=== PATIENT | male | born 1955 | race Caucasian/White ===

== ENCOUNTER 2019-02-27 20:48 | Inpatient (IN) | payer OTHER, MEDICAID ==
[~2019-02-27] VITALS: Ht 162.6 cm; Wt 70.3 kg
[2019-02-28] VITALS (28 sets, daily range): BP systolic 94–125; BP diastolic 51–72
[2019-02-28 00:03] LABS: CLARITY URINE CLEAR (CLEAR); COLOR URINE YELLOW (YELLOW); KETONES URINE NEGATIVE (NEGATIVE); LEUKOCYTE ESTERASE URINE NEGATIVE (NEGATIVE); NITRITE URINE NEGATIVE (NEGATIVE); OCCULT BLOOD URINE NEGATIVE (NEGATIVE); PROTEIN URINE 1+ (NEGATIVE); SPECIFIC GRAVITY URINE 1.015 (1.005-1.030)
[2019-02-28 00:17] LABS: CHLORIDE 107 mEq/L (98-107)
[2019-02-28] MEDS ORDERED: PIPERACILLIN/TAZ 3.375G PREMIX 50 ML IV ONE (00:45)
[2019-02-28] MEDS ORDERED: SODIUM CHLORIDE 0.9% 1000ML BAG (SEPSIS BOLUS) IV ONE (00:45)
[2019-02-28 01:30] LABS: BASOPHILS % 0.6 % (0.0-2.0); EOSINOPHILS % 1.5 % (0.0-5.0); HEMATOCRIT. 22.5 % (42.0-52.0); LYMPHOCYTES % 11.8 % (20.0-50.0); MEAN CORPUSCULAR HEMOGLOBIN 18.5 pg (28.0-32.0); MEAN CORPUSCULAR VOLUME 62.6 fL (80.0-94.0); MEAN PLATELET VOLUME 8.9 fl (7.4-10.4); MONOCYTES % 6.1 % (2.0-8.0); PLATELET 161 x1000/uL (130-400); RED BLOOD CELL COUNT 3.59 mill/uL (4.7-6.1); RED CELL DISTRIBUTION WIDTH 22.5 % (11.6-14.6)
[2019-02-28 01:35] LABS: HEMOGLOBIN. 6.6 g/dL (14.0-18.0)
[2019-02-28 01:36] LABS: INR 1.1; PROTHROMBIN TIME 10.9 sec (9.6-11.0)
[2019-02-28 01:52] LABS: PLATELET ESTIMATE NORMAL
[2019-02-28] MEDS ORDERED: INSULIN LISPRO 100 UNITS/ML SUBCUT ONE (02:00)
[2019-02-28] MEDS ORDERED: FAMOTIDINE 20MG/2ML VIAL IV ONE (02:00)
[2019-02-28] MEDS ORDERED: DEXTROSE 50% WATER 50ML SYRINGE IV PRN (06:15)
[2019-02-28] MEDS: INSULIN LISPRO 100 UNITS/ML SUBCUT SCH ×4 (07:20→20:07)
[2019-02-28] MEDS: BLOOD SUGAR DIAGNOSTIC STRIP TEST SCH ×4 (07:31→20:00)
[2019-02-28] MEDS ORDERED: PNEUMOCOCCAL 23-VAL P-SAC VAC 0.5 ML IM ONE (08:00)
[2019-02-28] MEDS ORDERED: PANTOPRAZOLE SODIUM 40 MG/VIAL IV SCH (09:00)
[2019-02-28 10:20] LABS: TOTAL IRON BINDING CAPACITY 396 ug/dL (250-450)
[2019-02-28 12:05] LABS: FERRITIN 5 ng/mL (22-322)
[2019-02-28 12:16] LABS: HEPATITIS B SURFACE ANTIGEN NEGATIVE
[2019-02-28 12:45] LABS: HEPATITIS A AB IGM NEGATIVE (NEGATIVE)
[2019-02-28 13:07] LABS: BASOPHILS % 0.3 % (0.0-2.0); EOSINOPHILS % 2.8 % (0.0-5.0); LYMPHOCYTES % 29.6 % (20.0-50.0); MEAN CORPUSCULAR HEMOGLOBIN 18.5 pg (28.0-32.0); MEAN CORPUSCULAR VOLUME 61.7 fL (80.0-94.0); MEAN PLATELET VOLUME 8.5 fl (7.4-10.4); MONOCYTES % 7.7 % (2.0-8.0); NEUTROPHILS % 59.6 % (40.0-76.0); PLATELET 126 x1000/uL (130-400); RED BLOOD CELL COUNT 3.05 mill/uL (4.7-6.1); RED CELL DISTRIBUTION WIDTH 22.1 % (11.6-14.6)
[2019-02-28 13:13] LABS: CHLORIDE 113 mEq/L (98-107)
[2019-02-28 13:17] LABS: HEMATOCRIT. 18.8 % (42.0-52.0); HEMOGLOBIN. 5.7 g/dL (14.0-18.0)
[2019-02-28] MEDS ORDERED: FENTANYL CITRATE/PF 50MCG/ML 2ML VIAL ONE (14:44)
[2019-02-28] MEDS ORDERED: MIDAZOLAM HCL 5 MG/5 ML VIAL ONE (14:45)
[2019-02-28] MEDS ORDERED: MIDAZOLAM HCL 2 MG/2 ML VIAL IV PRN (15:00)
[2019-02-28] MEDS ORDERED: BACTERIOSTATIC SODIUM CHLORIDE 0.9% 30ML VIAL IJ ONE (16:00)
[2019-02-28] MEDS ORDERED: MORPHINE SULFATE 4 MG/ML CPJ (NOT FOR IM USE) IV PRN ×2 (17:15)
[2019-02-28] MEDS: PANTOPRAZOLE SODIUM 40 MG/VIAL IV SCH (18:27)
[2019-02-28 19:59] LABS: HEMOGLOBIN 8.2 g/dL (14.0-18.0); INR 1.1; PROTHROMBIN TIME 11.4 sec (9.6-11.0)
[2019-02-28] MEDS: PROPRANOLOL HCL 10MG TABLET PO SCH (20:06)
[2019-03-01] VITALS (7 sets, daily range): BP systolic 108–125; BP diastolic 58–76
[2019-03-01] MEDS: BLOOD SUGAR DIAGNOSTIC STRIP TEST SCH (06:15)
[2019-03-01] MEDS ORDERED: OMEPRAZOLE 20MG CAPSULE EXTENDED RELEASE PO SCH (06:50)
[2019-03-01 08:25] LABS: HEMOGLOBIN 8.5 g/dL (14.0-18.0)
[2019-03-01] MEDS: PANTOPRAZOLE SODIUM 40 MG/VIAL IV SCH (08:56)
[2019-03-01] MEDS: PROPRANOLOL HCL 10MG TABLET PO SCH (08:56)
[2019-03-01] MEDS: INSULIN LISPRO 100 UNITS/ML SUBCUT SCH (09:07)
[2019-03-01] MEDS ORDERED: OMEP20CA10 PO (10:27)
[2019-03-01] MEDS ORDERED: PROP10TA10 PO (10:27)
== END 2019-03-01 12:10 | disposition home or self-care (01) | DRG 280 ==
LOC: ER 22:43 → 3WST 02-28 01:58 → EDBEDREQTM 02-28 02:00 → EDBEDREQDT 02-28 02:00 → EDBEDREQ 02-28 02:00 → ENRESERV 02-28 02:50
PROVIDERS: ADMIT Family Medicine; ATTEND Family Medicine
PROC: 06L38CZ Occlusion of Esophageal Vein with Extraluminal Device, Via Natural or Artificial Opening Endoscopic (ICD-10-PCS; principal; 2019-02-28)
PROC: 30233N1 Transfusion of Nonautologous Red Blood Cells into Peripheral Vein, Percutaneous Approach (ICD-10-PCS; 2019-02-28)
DX: K70.30 Alcoholic cirrhosis of liver without ascites (principal); E43 Unspecified severe protein-calorie malnutrition; I85.11 Secondary esophageal varices with bleeding; K22.11 Ulcer of esophagus with bleeding; K76.6 Portal hypertension; N13.8 Other obstructive and reflux uropathy; D62 Acute posthemorrhagic anemia; E11.9 Type 2 diabetes mellitus without complications; D63.8 Anemia in other chronic diseases classified elsewhere; F10.20 Alcohol dependence, uncomplicated; K44.9 Diaphragmatic hernia without obstruction or gangrene; F17.210 Nicotine dependence, cigarettes, uncomplicated; N40.1 Benign prostatic hyperplasia with lower urinary tract symptoms; I10 Essential (primary) hypertension; K21.9 Gastro-esophageal reflux disease without esophagitis; K31.89 Other diseases of stomach and duodenum; Z79.4 Long term (current) use of insulin; Z68.26 Body mass index [BMI] 26.0-26.9, adult
CPT/HCPCS: 36415; 71045; 74176; 76705; 80320; 82728; 82962; 83540; 83550; 83605; 84145; 84484; 85014; 85018; 86705; 86709; 86803; 86850; 86900; 86920; 87340; 90732; 93005; 96365; 96372; 96375; 99291; C9113; J1815; J2250; J2270; J2543; J3010; J3490; J7030; J7040; P9016; G0480

== ENCOUNTER 2019-03-07 23:49 | Inpatient (IN) | payer OTHER, MEDICAID ==
[~2019-03-07] VITALS: Ht 154.9 cm; Wt 74.9 kg
[~2019-03-07 23:49] MED LIST: OMEP20CA10 PO; PROP10TA10 PO
[2019-03-08] VITALS (60 sets, daily range): BP systolic 75–120; BP diastolic 30–79
[2019-03-08] MEDS ORDERED: SODIUM CHLORIDE 0.9% 1,000 ML IV ONE ×3 (00:07→02:19)
[2019-03-08] MEDS ORDERED: ONDANSETRON HCL 4MG/2ML INJ IV STA (00:07)
[2019-03-08] MEDS ORDERED: FAMOTIDINE 20MG/2ML VIAL IV ONE (00:15)
[2019-03-08] MEDS ORDERED: OCTREOTIDE 1,000 MCG in SODIUM CHLORIDE 0.9% 100 ML IV STA (00:20)
[2019-03-08] MEDS ORDERED: OCTREOTIDE ACETATE 50 MCG/ML 1ML IV STA (00:20)
[2019-03-08 00:41] LABS: BASOPHILS % 0.9 % (0.0-2.0); EOSINOPHILS % 2.7 % (0.0-5.0); LYMPHOCYTES % 17.3 % (20.0-50.0); MEAN CORPUSCULAR HEMOGLOBIN 21.5 pg (28.0-32.0); MEAN CORPUSCULAR VOLUME 70.4 fL (80.0-94.0); MEAN PLATELET VOLUME 8.8 fl (7.4-10.4); MONOCYTES % 7.2 % (2.0-8.0); NEUTROPHILS % 71.9 % (40.0-76.0); PLATELET 145 x1000/uL (130-400); RED CELL DISTRIBUTION WIDTH 27.1 % (11.6-14.6)
[2019-03-08 00:43] LABS: CHLORIDE 107 mEq/L (98-107)
[2019-03-08 00:44] LABS: INR 1.1; PARTIAL THROMBOPLASTIN TIME 26.1 sec (23.4-31.0); PROTHROMBIN TIME 11.6 sec (9.6-11.0)
[2019-03-08 00:45] LABS: HEMATOCRIT. 19.7 % (42.0-52.0)
[2019-03-08] MEDS ORDERED: SODIUM CHLORIDE 0.9% 1,000 ML IV SCH (02:46)
[2019-03-08] MEDS ORDERED: ONDANSETRON HCL 4MG/2ML INJ IV PRN (04:30)
[2019-03-08] MEDS ORDERED: DEXTROSE 50% WATER 50ML SYRINGE IV PRN (04:30)
[2019-03-08] MEDS ORDERED: ACETAMINOPHEN 650MG SUPP PR PRN (04:30)
[2019-03-08] MEDS ORDERED: MORPHINE SULFATE 4 MG/ML CPJ (NOT FOR IM USE) IV PRN (04:30)
[2019-03-08] MEDS ORDERED: METF-414 PO (04:38)
[2019-03-08] MEDS ORDERED: INSLIS SUBCUT (04:38)
[2019-03-08] MEDS ORDERED: LISI2.5T47 PO (04:38)
[2019-03-08] MEDS ORDERED: ASPI-986 MT (04:49)
[2019-03-08] MEDS ORDERED: DEXT 5%/0.45% NACL KCL 20MEQ/L 1,000 ML IV SCH (05:00)
[2019-03-08] MEDS: BLOOD SUGAR DIAGNOSTIC STRIP TEST SCH ×4 (05:40→23:21)
[2019-03-08] MEDS: FAMOTIDINE 20MG/2ML VIAL IV SCH ×2 (05:43→18:08)
[2019-03-08] MEDS: INSULIN LISPRO 100 UNITS/ML SUBCUT SCH ×4 (05:43→23:21)
[2019-03-08] MEDS: OCTREOTIDE 1,000 MCG in SODIUM CHLORIDE 0.9% 100 ML IV SCH (05:53)
[2019-03-08 06:24] LABS: HEMATOCRIT. 24.7 % (42.0-52.0); MEAN CORPUSCULAR HEMOGLOBIN 25.1 pg (28.0-32.0); MEAN CORPUSCULAR VOLUME 77.8 fL (80.0-94.0); MEAN PLATELET VOLUME 8.5 fl (7.4-10.4); PLATELET 89 x1000/uL (130-400); RED BLOOD CELL COUNT 3.17 mill/uL (4.7-6.1); RED CELL DISTRIBUTION WIDTH 26.4 % (11.6-14.6)
[2019-03-08 06:32] LABS: INR 1.2
[2019-03-08 06:43] LABS: CHLORIDE 114 mEq/L (98-107)
[2019-03-08] MEDS: SODIUM CHLORIDE 0.9% 1,000 ML IV SCH ×3 (07:01→19:49)
[2019-03-08] MEDS ORDERED: NICOTINE 7MG PATCH TD SCH (09:00)
[2019-03-08] MEDS ORDERED: NICOTINE 21MG PATCH TD SCH (10:00)
[2019-03-08 10:22] LABS: TOTAL IRON BINDING CAPACITY 326 ug/dL (250-450)
[2019-03-08 10:57] LABS: PLATELET ESTIMATE DECREASED
[2019-03-08 11:06] LABS: CLARITY URINE CLEAR (CLEAR); COLOR URINE YELLOW (YELLOW); KETONES URINE NEGATIVE (NEGATIVE); LEUKOCYTE ESTERASE URINE NEGATIVE (NEGATIVE); NITRITE URINE NEGATIVE (NEGATIVE); OCCULT BLOOD URINE NEGATIVE (NEGATIVE); PROTEIN URINE NEGATIVE (NEGATIVE); SPECIFIC GRAVITY URINE 1.021 (1.005-1.030); UROBILINOGEN URINE 0.2 E.U./dL (0.2-1.0)
[2019-03-08 11:22] LABS: *AMPHETAMINES SCREEN URINE NEGATIVE (NEGATIVE); *BARBITURATES SCREEN URINE NEGATIVE (NEGATIVE); *BENZODIAZEPINES SCREEN URINE NEGATIVE (NEGATIVE); *COCAINE SCREEN URINE NEGATIVE (NEGATIVE); METHADONE URINE SCREEN NEGATIVE (NEGATIVE); OPIATES URINE SCREEN NEGATIVE (NEGATIVE)
[2019-03-08 11:23] LABS: CANNABINOID URINE SCREEN NEGATIVE (NEGATIVE); PHENCYCLIDINE URINE SCREEN NEGATIVE (NEGATIVE)
[2019-03-08] MEDS ORDERED: SIMETHICONE 40 MG/0.6 ML 30ML ONE (11:45)
[2019-03-08] MEDS ORDERED: LIDOCAINE HCL 1% 20ML VIAL (Pyxis) INJ ONE (11:45)
[2019-03-08] MEDS ORDERED: PROPOFOL 200MG/20ML VIAL IV ONE (11:45)
[2019-03-08] MEDS ORDERED: MIDAZOLAM HCL 2 MG/2 ML VIAL ONE ×2 (11:52→12:10)
[2019-03-08] MEDS ORDERED: EPHEDRINE SULFATE 50MG/ML VIAL ONE (11:59)
[2019-03-08] MEDS ORDERED: SODIUM CHLORIDE 0.9% 10ML VIAL ONE (11:59)
[2019-03-08] MEDS: INSULIN GLARGINE UD 100 UNITS/ML SYR SUBCUT SCH ×2 (12:39→23:24)
[2019-03-08] MEDS: SUCRALFATE 1 G/10 ML UDC PO SCH ×2 (18:08→23:21)
[2019-03-08] MEDS ORDERED: INSU100I28 SQ (23:46)
[2019-03-09] VITALS (39 sets, daily range): BP systolic 65–141; BP diastolic 25–78
[2019-03-09] MEDS: SODIUM CHLORIDE 0.9% 1,000 ML IV SCH ×3 (03:40→22:27)
[2019-03-09 05:37] LABS: BASOPHILS % 0.6 % (0.0-2.0); EOSINOPHILS % 2.1 % (0.0-5.0); LYMPHOCYTES % 18.4 % (20.0-50.0); MEAN CORPUSCULAR HEMOGLOBIN 25.1 pg (28.0-32.0); MEAN CORPUSCULAR VOLUME 75.9 fL (80.0-94.0); MEAN PLATELET VOLUME 8.6 fl (7.4-10.4); MONOCYTES % 7.5 % (2.0-8.0); NEUTROPHILS % 71.4 % (40.0-76.0); PLATELET 102 x1000/uL (130-400); RED BLOOD CELL COUNT 2.66 mill/uL (4.7-6.1); RED CELL DISTRIBUTION WIDTH 27.1 % (11.6-14.6)
[2019-03-09] MEDS: INSULIN LISPRO 100 UNITS/ML SUBCUT SCH ×4 (05:58→21:22)
[2019-03-09] MEDS: SUCRALFATE 1 G/10 ML UDC PO SCH ×3 (05:58→18:00)
[2019-03-09] MEDS: BLOOD SUGAR DIAGNOSTIC STRIP TEST SCH ×3 (05:58→18:33)
[2019-03-09] MEDS: OCTREOTIDE 1,000 MCG in SODIUM CHLORIDE 0.9% 100 ML IV SCH (05:58)
[2019-03-09] MEDS: FAMOTIDINE 20MG/2ML VIAL IV SCH ×2 (05:58→18:00)
[2019-03-09 06:18] LABS: HEMATOCRIT. 20.2 % (42.0-52.0); HEMOGLOBIN. 6.7 g/dL (14.0-18.0)
[2019-03-09 06:20] LABS: CHLORIDE 113 mEq/L (98-107)
[2019-03-09] MEDS: NICOTINE 21MG PATCH TD SCH (08:05)
[2019-03-09] MEDS: INSULIN GLARGINE UD 100 UNITS/ML SYR SUBCUT SCH ×2 (09:06→21:23)
[2019-03-09 17:02] LABS: HEMOGLOBIN 9.2 g/dL (14.0-18.0)
[2019-03-09] MEDS ORDERED: GUAIFENESIN/CODEINE 100-10MG/5ML UDC PO PRN (21:30)
[2019-03-10] VITALS (10 sets, daily range): BP systolic 121–152; BP diastolic 54–80
[2019-03-10] MEDS: SUCRALFATE 1 G/10 ML UDC PO SCH ×5 (00:32→23:31)
[2019-03-10] MEDS: BLOOD SUGAR DIAGNOSTIC STRIP TEST SCH ×5 (00:32→23:31)
[2019-03-10] MEDS: INSULIN LISPRO 100 UNITS/ML SUBCUT SCH ×4 (06:00→23:42)
[2019-03-10 06:43] LABS: BASOPHILS % 0.4 % (0.0-2.0); EOSINOPHILS % 1.9 % (0.0-5.0); HEMATOCRIT. 27.8 % (42.0-52.0); HEMOGLOBIN. 9.5 g/dL (14.0-18.0); LYMPHOCYTES % 18.9 % (20.0-50.0); MEAN CORPUSCULAR HEMOGLOBIN 27.6 pg (28.0-32.0); MEAN CORPUSCULAR VOLUME 80.4 fL (80.0-94.0); MONOCYTES % 8.1 % (2.0-8.0); NEUTROPHILS % 70.7 % (40.0-76.0); RED BLOOD CELL COUNT 3.45 mill/uL (4.7-6.1); RED CELL DISTRIBUTION WIDTH 24.3 % (11.6-14.6)
[2019-03-10 06:58] LABS: CHLORIDE 114 mEq/L (98-107)
[2019-03-10] MEDS: FAMOTIDINE 20MG/2ML VIAL IV SCH (07:12)
[2019-03-10] MEDS: SODIUM CHLORIDE 0.9% 1,000 ML IV SCH ×3 (07:12→23:30)
[2019-03-10] MEDS: NICOTINE 21MG PATCH TD SCH (09:19)
[2019-03-10] MEDS: INSULIN GLARGINE UD 100 UNITS/ML SYR SUBCUT SCH ×2 (10:13→21:06)
[2019-03-10] MEDS: OMEPRAZOLE 20MG CAPSULE EXTENDED RELEASE PO SCH ×2 (10:17→20:01)
[2019-03-10] MEDS ORDERED: POTASSIUM CHLORIDE 20MEQ TABLET SR PO NR (10:45)
[2019-03-10 11:33] LABS: PLATELET 107 x1000/uL (130-400)
[2019-03-11] VITALS: BP 143/68
[2019-03-11 04:00] VITALS: BP 124/73
[2019-03-11] MEDS: SUCRALFATE 1 G/10 ML UDC PO SCH ×3 (05:25→17:57)
[2019-03-11] MEDS: OCTREOTIDE 1,000 MCG in SODIUM CHLORIDE 0.9% 100 ML IV SCH (05:30)
[2019-03-11] MEDS: INSULIN LISPRO 100 UNITS/ML SUBCUT SCH ×3 (05:33→18:02)
[2019-03-11] MEDS: BLOOD SUGAR DIAGNOSTIC STRIP TEST SCH ×3 (05:33→18:03)
[2019-03-11 07:05] LABS: BASOPHILS % 0.6 % (0.0-2.0); EOSINOPHILS % 3.2 % (0.0-5.0); HEMATOCRIT. 27.6 % (42.0-52.0); HEMOGLOBIN. 9.2 g/dL (14.0-18.0); LYMPHOCYTES % 20.6 % (20.0-50.0); MEAN CORPUSCULAR HEMOGLOBIN 26.6 pg (28.0-32.0); MEAN CORPUSCULAR VOLUME 79.6 fL (80.0-94.0); MEAN PLATELET VOLUME 8.5 fl (7.4-10.4); MONOCYTES % 9.6 % (2.0-8.0); PLATELET 137 x1000/uL (130-400); RED BLOOD CELL COUNT 3.46 mill/uL (4.7-6.1); RED CELL DISTRIBUTION WIDTH 24.7 % (11.6-14.6)
[2019-03-11 07:28] LABS: CHLORIDE 113 mEq/L (98-107)
[2019-03-11 07:32] VITALS: BP 127/68
[2019-03-11] MEDS: OMEPRAZOLE 20MG CAPSULE EXTENDED RELEASE PO SCH (08:04)
[2019-03-11] MEDS: NICOTINE 21MG PATCH TD SCH (08:04)
[2019-03-11] MEDS: SODIUM CHLORIDE 0.9% 1,000 ML IV SCH (08:04)
[2019-03-11] MEDS ORDERED: POTASSIUM CHLORIDE 20MEQ TABLET SR PO NR (10:00)
[2019-03-11] MEDS: INSULIN GLARGINE UD 100 UNITS/ML SYR SUBCUT SCH (10:13)
[2019-03-11 11:42] VITALS: BP 140/70
[2019-03-11 15:36] VITALS: BP 140/77
[2019-03-11 16:00] VITALS: BP 123/64
== END 2019-03-11 18:45 | disposition home or self-care (01) | DRG 280 ==
LOC: ER 23:49 → MICUSO 03-08 02:49 → EDBEDREQTM 03-08 02:50 → EDBEDREQ 03-08 02:50 → ENRESERV 03-08 02:54 → MICUSO 03-08 04:20 → 5EST 03-09 13:55
PROVIDERS: ADMIT Internal Medicine; ATTEND Internal Medicine
PROC: 06L38CZ Occlusion of Esophageal Vein with Extraluminal Device, Via Natural or Artificial Opening Endoscopic (ICD-10-PCS; principal; 2019-03-08)
PROC: 30233N1 Transfusion of Nonautologous Red Blood Cells into Peripheral Vein, Percutaneous Approach (ICD-10-PCS; 2019-03-08)
DX: K70.30 Alcoholic cirrhosis of liver without ascites (principal); E43 Unspecified severe protein-calorie malnutrition; I85.11 Secondary esophageal varices with bleeding; E87.2 Acidosis; D69.59 Other secondary thrombocytopenia; D62 Acute posthemorrhagic anemia; K76.6 Portal hypertension; K22.10 Ulcer of esophagus without bleeding; E11.9 Type 2 diabetes mellitus without complications; E66.9 Obesity, unspecified; I10 Essential (primary) hypertension; K44.9 Diaphragmatic hernia without obstruction or gangrene; K75.9 Inflammatory liver disease, unspecified; D50.9 Iron deficiency anemia, unspecified; D63.8 Anemia in other chronic diseases classified elsewhere; F10.20 Alcohol dependence, uncomplicated; F17.210 Nicotine dependence, cigarettes, uncomplicated; J98.11 Atelectasis; Z79.4 Long term (current) use of insulin; Z82.49 Family history of ischemic heart disease and other diseases of the circulatory system; Z83.3 Family history of diabetes mellitus; Z79.82 Long term (current) use of aspirin; Z79.899 Other long term (current) drug therapy; Z71.6 Tobacco abuse counseling; Z71.3 Dietary counseling and surveillance; Z68.31 Body mass index [BMI] 31.0-31.9, adult
CPT/HCPCS: 36415; 71045; 80048; 80305; 82693; 82728; 82962; 83540; 83550; 83605; 84484; 85014; 85018; 85384; 86850; 86900; 86920; 93005; 93970; 96374; 96375; 99291; J1815; J2250; J2270; J2354; J2405; J2704; J3490; J7030; J7040; J7050; P9016; P9021

== ENCOUNTER 2019-05-25 10:44 | Day surgery (SDC) | payer MEDICAID ==
[~2019-05-25] VITALS: Ht 165.1 cm; Wt 72.6 kg
[~2019-05-25 10:44] MED LIST changes: +ASPI-986 MT; +INSLIS SUBCUT; +INSU100I28 SQ; +LISI2.5T47 PO; +METF-414 PO; -OMEP20CA10 PO; +OMEP20CA5 PO
[2019-05-25 12:34] LABS: BASOPHILS % 0.8 % (0.0-2.0); EOSINOPHILS % 3.5 % (0.0-5.0); HEMATOCRIT. 32.5 % (42.0-52.0); HEMOGLOBIN. 10.8 g/dL (14.0-18.0); MEAN CORPUSCULAR HEMOGLOBIN 26.1 pg (28.0-32.0); MEAN CORPUSCULAR VOLUME 78.6 fL (80.0-94.0); MEAN PLATELET VOLUME 8.3 fl (7.4-10.4); MONOCYTES % 7.8 % (2.0-8.0); NEUTROPHILS % 60.9 % (40.0-76.0); PLATELET 120 x1000/uL (130-400); RED BLOOD CELL COUNT 4.13 mill/uL (4.7-6.1); RED CELL DISTRIBUTION WIDTH 24.3 % (11.6-14.6)
[2019-05-25 12:40] LABS: CHLORIDE 110 mEq/L (98-107)
[2019-05-25 12:43] LABS: INR 1.1; PARTIAL THROMBOPLASTIN TIME 27.9 sec (23.4-31.0); PROTHROMBIN TIME 11.1 sec (9.6-11.0)
[2019-05-25 12:53] LABS: PLATELET ESTIMATE SLIGHTLY DECREASED
[2019-05-25] MEDS ORDERED: SIMETHICONE 40 MG/0.6 ML 30ML ONE (13:27)
[2019-05-25] MEDS ORDERED: PROPOFOL 200MG/20ML VIAL IV ONE ×2 (13:41→13:48)
[2019-05-25] MEDS ORDERED: ONDANSETRON HCL 4MG/2ML INJ IV PRN (14:15)
[2019-05-25] MEDS ORDERED: FENTANYL CITRATE/PF 50MCG/ML 2ML VIAL IV PRN (14:15)
[2019-05-25 15:23] VITALS: BP 136/77
== END 2019-05-25 19:00 | disposition home or self-care (01) ==
LOC: OR 10:44
PROVIDERS: ATTEND Internal Medicine Gastroenterology
DX: K29.50 Unspecified chronic gastritis without bleeding (principal); I85.01 Esophageal varices with bleeding; K76.6 Portal hypertension; K70.30 Alcoholic cirrhosis of liver without ascites; K31.9 Disease of stomach and duodenum, unspecified; I10 Essential (primary) hypertension; E11.9 Type 2 diabetes mellitus without complications; E78.5 Hyperlipidemia, unspecified; F10.10 Alcohol abuse, uncomplicated; Z79.4 Long term (current) use of insulin; Z79.84 Long term (current) use of oral hypoglycemic drugs; Z79.899 Other long term (current) drug therapy
CPT/HCPCS: 36415; 43239; 43244; 80048; 82962; 85025; 85610; 85730; 88305; 88312; 88313; 93005; J2704; J3010

== ENCOUNTER 2019-09-26 14:01 | Emergency (ER) | payer MEDICAID, OTHER ==
[~2019-09-26] VITALS: Ht 160 cm; Wt 74.0 kg
[~2019-09-26 14:01] MED LIST changes: -ASPI-986 MT; -INSLIS SUBCUT; -LISI2.5T47 PO
[2019-09-26 14:40] VITALS: BP 139/79
== END 2019-09-26 17:43 | disposition home or self-care (01) ==
LOC: ER 14:31
DX: S01.01XD Laceration without foreign body of scalp, subsequent encounter (principal); E11.9 Type 2 diabetes mellitus without complications; I11.9 Hypertensive heart disease without heart failure; E78.00 Pure hypercholesterolemia, unspecified; F17.200 Nicotine dependence, unspecified, uncomplicated; Z79.4 Long term (current) use of insulin; Z79.84 Long term (current) use of oral hypoglycemic drugs; Z79.899 Other long term (current) drug therapy; X58.XXXD Exposure to other specified factors, subsequent encounter
CPT/HCPCS: 99281

== ENCOUNTER 2021-06-21 07:37 | Emergency (ER) | payer OTHER ==
[~2021-06-21] VITALS: Ht 154.9 cm; Wt 82.0 kg
[~2021-06-21 07:37] MED LIST changes: +OMEP20CA14 PO; -OMEP20CA5 PO
[2021-06-21 09:02] LABS: BASOPHILS % 0.3 % (0.0-2.0); EOSINOPHILS % 1.2 % (0.0-5.0); HEMATOCRIT. 31.3 % (42.0-52.0); HEMOGLOBIN. 10.6 g/dL (14.0-18.0); LYMPHOCYTES % 7.7 % (20.0-50.0); MEAN CORPUSCULAR HEMOGLOBIN 28.2 pg (28.0-32.0); MEAN CORPUSCULAR VOLUME 83.2 fL (80.0-94.0); MEAN PLATELET VOLUME 8.3 fl (7.4-10.4); MONOCYTES % 5.7 % (2.0-8.0); NEUTROPHILS % 85.1 % (40.0-76.0); PLATELET 125 x1000/uL (130-400); RED BLOOD CELL COUNT 3.76 mill/uL (4.7-6.1); RED CELL DISTRIBUTION WIDTH 14.8 % (11.6-14.6)
[2021-06-21 09:08] LABS: CHLORIDE 109 mEq/L (98-107)
[2021-06-21 09:11] LABS: CLARITY URINE TURBID (CLEAR); COLOR URINE ORANGE (YELLOW); KETONES URINE NEGATIVE (NEGATIVE); LEUKOCYTE ESTERASE URINE 2+ (NEGATIVE); NITRITE URINE POSITIVE (NEGATIVE); OCCULT BLOOD URINE 3+ (NEGATIVE); PROTEIN URINE 3+ (NEGATIVE); SPECIFIC GRAVITY URINE 1.019 (1.005-1.030)
[2021-06-21] MEDS ORDERED: SULF1TAB48 MT (09:56)
[2021-06-21] MEDS ORDERED: PHEN-909 MT (09:56)
[2021-06-21] MEDS ORDERED: SULFAMETHOXAZOLE/TRIMETHOPRIM 800/160MG TABLET PO NR (10:30)
[2021-06-21] MEDS ORDERED: PHENAZOPYRIDINE HCL 100MG TABLET PO NR (10:30)
[2021-06-21 11:00] VITALS: BP 142/68
== END 2021-06-21 11:04 | disposition home or self-care (01) ==
LOC: ER 07:37
DX: N41.9 Inflammatory disease of prostate, unspecified (principal); N39.0 Urinary tract infection, site not specified; I11.0 Hypertensive heart disease with heart failure; I50.9 Heart failure, unspecified; E78.00 Pure hypercholesterolemia, unspecified; E11.9 Type 2 diabetes mellitus without complications; Z79.4 Long term (current) use of insulin; Z79.899 Other long term (current) drug therapy
CPT/HCPCS: 36415; 76770; 80053; 81003; 85025; 87077; 87186; 99284

== ENCOUNTER 2023-10-24 18:29 | Emergency (ER) | payer OTHER ==
[~2023-10-24] VITALS: Ht 165.1 cm; Wt 91.0 kg
[~2023-10-24 18:29] MED LIST changes: +PHEN-909 MT; +SULF1TAB48 MT
[2023-10-24 18:46] VITALS: O2SAT 99
[2023-10-24 19:14] LABS: CLARITY URINE CLEAR (CLEAR); COLOR URINE YELLOW (YELLOW); GLUCOSE URINE NEGATIVE (NEGATIVE); KETONES URINE NEGATIVE (NEGATIVE); LEUKOCYTE ESTERASE URINE NEGATIVE (NEGATIVE); NITRITE URINE NEGATIVE (NEGATIVE); OCCULT BLOOD URINE NEGATIVE (NEGATIVE); PH URINE 5.5 (4.5-8.0); PROTEIN URINE 2+ (NEGATIVE); SPECIFIC GRAVITY URINE 1.019 (1.005-1.030); UROBILINOGEN URINE 0.2 E.U./dL (0.2-1.0)
[2023-10-24 19:26] LABS: BACTERIA URINE TRACE; RBC URINE NONE SEEN /hpf (0-2); SQUAMOUS EPITHELIAL CELL URINE RARE /lpf (RARE/1+); WBC URINE 0-2 /hpf (0-2)
[2023-10-24 19:51] LABS: BASOPHILS % 0.8 % (0.0-2.0); DIFFERENTIAL COMMENT 0; EOSINOPHILS % 1.9 % (0.0-5.0); HEMATOCRIT. 22.5 % (42.0-52.0); HEMOGLOBIN. 7.4 g/dL (14.0-18.0); LYMPHOCYTES % 13.3 % (20.0-50.0); MEAN CORPUSCULAR HEMOGLOBIN 24.8 pg (28.0-32.0); MEAN CORPUSCULAR HGB CONC 32.6 g/dL (31.0-37.0); MEAN CORPUSCULAR VOLUME 75.9 fL (80.0-94.0); MEAN PLATELET VOLUME 7.2 fl (7.4-10.4); MONOCYTES % 5.6 % (2.0-8.0); NEUTROPHILS % 78.4 % (40.0-76.0); PLATELET 276 x1000/uL (130-400); RED BLOOD CELL COUNT 2.97 mill/uL (4.7-6.1); RED CELL DISTRIBUTION WIDTH 18.3 % (11.6-14.6); WHITE BLOOD COUNT 7.3 x1000/uL (4.5-11.0)
[2023-10-24 20:04] LABS: ALANINE AMINOTRANSFERASE 14 IU/L (10-49); ALBUMIN 3.1 g/dL (3.2-4.8); ASPARTATE AMINOTRANSFERASE 16 IU/L (<34); BILIRUBIN TOTAL 0.2 mg/dL (0.1-1.0); CALCIUM 8.3 mg/dL (8.7-10.4); CARBON DIOXIDE 25 mEq/L (21-32); CHLORIDE 111 mEq/L (98-107); CREATININE 1.7 mg/dL (0.6-1.3); GLUCOSE 203 mg/dL (70-105); POTASSIUM 4.6 mEq/L (3.5-5.1); PROTEIN TOTAL 6.1 g/dL (6.0-8.3); SODIUM 143 mEq/L (136-145); UREA NITROGEN BLOOD 45 mg/dL (9-23)
[2023-10-24] MEDS ORDERED: CEFTRIAXONE 1GM PREMIX 50 ML IV NR (22:30)
[2023-10-25 07:45] VITALS: BP 139/65; PULSE 60; RESP 16; TEMP 98.2
== END 2023-10-25 08:46 | disposition short-term general hospital (02) ==
LOC: ER 18:29
DX: R14.0 Abdominal distension (gaseous) (principal); R06.02 Shortness of breath; R07.89 Other chest pain; E11.9 Type 2 diabetes mellitus without complications; E78.00 Pure hypercholesterolemia, unspecified; I10 Essential (primary) hypertension
CPT/HCPCS: 80053; 81003; 85025; 36415; 99284; 74176; Z7610

== ENCOUNTER 2023-12-23 22:01 | Inpatient (IN) | payer MEDICAID, OTHER ==
[~2023-12-23] VITALS: Ht 152.4 cm; Wt 72.7 kg
[2023-12-23 22:50] VITALS: O2SAT 100
[2023-12-24] MEDS: FAMOTIDINE 20MG TABLET PO ONE (01:24)
[2023-12-24] MEDS: ONDANSETRON HCL 4MG/2ML INJ IM STA (01:24)
[2023-12-24 01:30] LABS: BASOPHILS % 0.6 % (0.0-2.0); EOSINOPHILS % 0.1 % (0.0-5.0); HEMATOCRIT. 25.5 % (42.0-52.0); HEMOGLOBIN. 7.8 g/dL (14.0-18.0); LYMPHOCYTES % 8.8 % (20.0-50.0); MEAN CORPUSCULAR HEMOGLOBIN 25.8 pg (28.0-32.0); MEAN CORPUSCULAR HGB CONC 30.7 g/dL (31.0-37.0); MEAN CORPUSCULAR VOLUME 83.9 fL (80.0-94.0); MONOCYTES % 2.4 % (2.0-8.0); NEUTROPHILS % 88.1 % (40.0-76.0); PLATELET 290 x1000/uL (130-400); RED BLOOD CELL COUNT 3.03 mill/uL (4.7-6.1); RED CELL DISTRIBUTION WIDTH 20.1 % (11.6-14.6); WHITE BLOOD COUNT 11.1 x1000/uL (4.5-11.0)
[2023-12-24 01:46] LABS: ALANINE AMINOTRANSFERASE 12 IU/L (10-49); ALBUMIN 3.7 g/dL (3.2-4.8); ASPARTATE AMINOTRANSFERASE 17 IU/L (<34); BILIRUBIN TOTAL < 0.2 mg/dL (0.1-1.0); CALCIUM 8.7 mg/dL (8.7-10.4); CARBON DIOXIDE 12 mEq/L (21-32); CHLORIDE 109 mEq/L (98-107); GLUCOSE 129 mg/dL (70-105); POTASSIUM 6.1 mEq/L (3.5-5.1); PROTEIN TOTAL 6.9 g/dL (6.0-8.3); SODIUM 140 mEq/L (136-145); UREA NITROGEN BLOOD 95 mg/dL (9-23)
[2023-12-24 01:51] LABS: ETHANOL BLOOD < 10 mg/dL (<10)
[2023-12-24 01:53] LABS: CREATININE 5.4 mg/dL (0.6-1.3)
[2023-12-24] MEDS: SODIUM POLYSTYRENE SULFONATE 15 G/60 ML BOT PO ONE (03:19)
[2023-12-24] MEDS: DEXTROSE 50% WATER 50ML SYRINGE IV NR (03:29)
[2023-12-24] MEDS: SODIUM BICARBONATE 8.4% 1 MEQ/ML 50ML SYR IV NR ×2 (03:32→10:20)
[2023-12-24] MEDS: INSULIN REGULAR (HUMULIN R) 300UNITS/3ML VIAL IV ONE (03:32)
[2023-12-24] MEDS: CEFTRIAXONE 1GM/50ML 50 ML IV NR (06:06)
[2023-12-24] MEDS: PANTOPRAZOLE SODIUM 40 MG/VIAL IV NR (06:10)
[2023-12-24] MEDS ORDERED: ACETAMINOPHEN 325MG TABLET PO PRN (06:45)
[2023-12-24] MEDS ORDERED: ONDANSETRON HCL 4MG/2ML INJ IV PRN (06:45)
[2023-12-24] MEDS ORDERED: NALOXONE HCL 0.4MG/ML VIAL IV PRN (06:45)
[2023-12-24] MEDS ORDERED: MAGNESIUM/ALUMINUM HYDROXIDE/SIMETHICONE 30ML UDC PO PRN (06:45)
[2023-12-24] MEDS ORDERED: SODIUM CHLORIDE 0.9% 1,000 ML IV SCH (06:45)
[2023-12-24] MEDS ORDERED: CLONIDINE 0.1MG TABLET PO PRN (06:45)
[2023-12-24] MEDS ORDERED: HYDROCODONE/ACETAMINOPHEN 5/325MG TABLET PO PRN (06:45)
[2023-12-24 07:00] VITALS: BP 148/88; PULSE 89; TEMP 97
[2023-12-24 07:41] LABS: ALANINE AMINOTRANSFERASE 12 IU/L (10-49); ALBUMIN 3.8 g/dL (3.2-4.8); ASPARTATE AMINOTRANSFERASE 19 IU/L (<34); BILIRUBIN TOTAL < 0.2 mg/dL (0.1-1.0); CALCIUM 9.4 mg/dL (8.7-10.4); CARBON DIOXIDE 12 mEq/L (21-32); CHLORIDE 109 mEq/L (98-107); GLUCOSE 103 mg/dL (70-105); POTASSIUM 5.3 mEq/L (3.5-5.1); PROTEIN TOTAL 6.8 g/dL (6.0-8.3); SODIUM 140 mEq/L (136-145); UREA NITROGEN BLOOD 97 mg/dL (9-23)
[2023-12-24 07:46] LABS: HEMATOCRIT 25.1 % (42.0-52.0); MEAN CORPUSCULAR HEMOGLOBIN 26.5 pg (28.0-32.0); MEAN CORPUSCULAR HGB CONC 31.9 g/dL (31.0-37.0); MEAN CORPUSCULAR VOLUME 83.1 fL (80.0-94.0); PLATELET 303 x1000/uL (130-400); RED BLOOD CELL COUNT 3.01 mill/uL (4.7-6.1); RED CELL DISTRIBUTION WIDTH 20.1 % (11.6-14.6); WHITE BLOOD COUNT 11.2 x1000/uL (4.5-11.0)
[2023-12-24 08:00] VITALS: BP 142/80; PULSE 88; RESP 18; TEMP 97.8
[2023-12-24 08:18] LABS: CREATININE 5.5 mg/dL (0.6-1.3)
[2023-12-24] MEDS: SODIUM BICARBONATE 100 MEQ in DEXTROSE 5% WATER 1,000 ML IV SCH (10:20)
[2023-12-24 10:22] LABS: BASOPHILS % 0.4 % (0.0-2.0); EOSINOPHILS % 0.2 % (0.0-5.0); HEMATOCRIT. 24.3 % (42.0-52.0); HEMOGLOBIN. 7.8 g/dL (14.0-18.0); LYMPHOCYTES % 13.8 % (20.0-50.0); MEAN CORPUSCULAR HEMOGLOBIN 26.4 pg (28.0-32.0); MEAN CORPUSCULAR HGB CONC 32.1 g/dL (31.0-37.0); MEAN CORPUSCULAR VOLUME 82.3 fL (80.0-94.0); MEAN PLATELET VOLUME 7.5 fl (7.4-10.4); MONOCYTES % 5.1 % (2.0-8.0); NEUTROPHILS % 80.5 % (40.0-76.0); PLATELET 307 x1000/uL (130-400); RED BLOOD CELL COUNT 2.96 mill/uL (4.7-6.1); RED CELL DISTRIBUTION WIDTH 19.9 % (11.6-14.6)
[2023-12-24 10:23] LABS: CALCIUM 9.1 mg/dL (8.7-10.4); POTASSIUM 5.4 mEq/L (3.5-5.1)
[2023-12-24 11:31] LABS: CREATININE 5.5 mg/dL (0.6-1.3)
[2023-12-24 12:00] VITALS: BP 150/74; PULSE 82; RESP 20; TEMP 97
[2023-12-24 13:26] VITALS: BP 151/70; PULSE 94; RESP 18; TEMP 98
[2023-12-24 16:00] VITALS: BP 148/76; PULSE 84; RESP 18; TEMP 97.5
[2023-12-24 18:57] LABS: HEPATITIS B SURFACE ANTIGEN NEGATIVE (Negative); HEPATITIS C AB NON REACTIVE (Neg) (Negative)
[2023-12-24] MEDS ORDERED: DEXTROSE 50% WATER 50ML SYRINGE IV PRN (19:15)
[2023-12-24] MEDS: PANTOPRAZOLE SODIUM 40 MG/VIAL IV SCH (19:32)
[2023-12-24 20:00] VITALS: BP 134/71; PULSE 89; RESP 20; TEMP 97.6
[2023-12-24] MEDS: BLOOD SUGAR DIAGNOSTIC STRIP TEST SCH (21:07)
[2023-12-24] MEDS: INSULIN LISPRO 100 UNITS/ML SUBCUT SCH (21:15)
[2023-12-25] VITALS: BP 102/66; PULSE 98; RESP 20; TEMP 98.2
[2023-12-25 04:00] VITALS: BP 100/59; RESP 18; TEMP 98.6
[2023-12-25 07:51] LABS: BASOPHILS % 0.4 % (0.0-2.0); EOSINOPHILS % 0.3 % (0.0-5.0); HEMATOCRIT. 22.1 % (42.0-52.0); HEMOGLOBIN. 7.3 g/dL (14.0-18.0); LYMPHOCYTES % 11.3 % (20.0-50.0); MEAN CORPUSCULAR HEMOGLOBIN 26.6 pg (28.0-32.0); MEAN CORPUSCULAR HGB CONC 33.1 g/dL (31.0-37.0); MEAN CORPUSCULAR VOLUME 80.6 fL (80.0-94.0); MEAN PLATELET VOLUME 7.7 fl (7.4-10.4); MONOCYTES % 6.3 % (2.0-8.0); NEUTROPHILS % 81.7 % (40.0-76.0); PLATELET 271 x1000/uL (130-400); RED BLOOD CELL COUNT 2.74 mill/uL (4.7-6.1); WHITE BLOOD COUNT 8.9 x1000/uL (4.5-11.0)
[2023-12-25 08:00] VITALS: BP 96/49; PULSE 79; RESP 18; TEMP 96.8
[2023-12-25 08:08] LABS: ALANINE AMINOTRANSFERASE 9 IU/L (10-49); ALBUMIN 3.1 g/dL (3.2-4.8); ASPARTATE AMINOTRANSFERASE 13 IU/L (<34); BILIRUBIN TOTAL < 0.2 mg/dL (0.1-1.0); CARBON DIOXIDE 18 mEq/L (21-32); CHLORIDE 105 mEq/L (98-107); GLUCOSE 146 mg/dL (70-105); PHOSPHORUS 6.5 mg/dL (2.5-4.9); POTASSIUM 4.7 mEq/L (3.5-5.1); PROTEIN TOTAL 5.2 g/dL (6.0-8.3); SODIUM 139 mEq/L (136-145); THYROID STIMULATING HORMONE 3.46 uIU/mL (0.55-4.78); TROPONIN I HIGH SENSITIVITY 10 ng/L (3.0-53); UREA NITROGEN BLOOD 94 mg/dL (9-23)
[2023-12-25 08:09] LABS: BILIRUBIN DIRECT < 0.1 mg/dL (<=3.0)
[2023-12-25 08:10] LABS: CREATININE 6.1 mg/dL (0.6-1.3)
[2023-12-25 11:14] LABS: INR 1.2; PROTHROMBIN TIME 12.7 sec (9.6-11.0)
[2023-12-25 12:00] VITALS: BP 102/59; PULSE 79; RESP 18; TEMP 96.6
[2023-12-25 13:37] LABS: IRON 68 ug/dL (65-175); TOTAL IRON BINDING CAPACITY 260 ug/dl (250-425)
[2023-12-25 13:39] LABS: FERRITIN 117 ng/mL (22-322); FOLIC ACID (FOLATE) SERUM 17.61 ng/mL (>5.38); VITAMIN B12 SERUM 571 pg/mL (211-911)
[2023-12-25 16:00] VITALS: BP 104/47; PULSE 76; RESP 18; TEMP 96.7
[2023-12-25 17:30] LABS: CLARITY URINE CLEAR (CLEAR); COLOR URINE YELLOW (YELLOW); GLUCOSE URINE 1+ (NEGATIVE); KETONES URINE NEGATIVE (NEGATIVE); LEUKOCYTE ESTERASE URINE NEGATIVE (NEGATIVE); NITRITE URINE NEGATIVE (NEGATIVE); OCCULT BLOOD URINE 1+ (NEGATIVE); PROTEIN URINE 3+ (NEGATIVE); SPECIFIC GRAVITY URINE 1.014 (1.005-1.030); UROBILINOGEN URINE 0.2 E.U./dL (0.2-1.0)
[2023-12-25 17:50] LABS: RBC URINE 0-2 /hpf (0-2); WBC URINE 0-2 /hpf (0-2)
[2023-12-25 17:51] LABS: BACTERIA URINE TRACE; COARSE GRANULAR CASTS URINE 0-5 /lpf; SQUAMOUS EPITHELIAL CELL URINE RARE /lpf (RARE/1+)
[2023-12-25 17:55] LABS: *AMPHETAMINES SCREEN URINE NEGATIVE (NEGATIVE); *BARBITURATES SCREEN URINE NEGATIVE (NEGATIVE); *BENZODIAZEPINES SCREEN URINE NEGATIVE (NEGATIVE); *COCAINE SCREEN URINE NEGATIVE (NEGATIVE); CANNABINOID URINE SCREEN NEGATIVE (NEGATIVE); ECSTASY MDMA SCREEN URINE NEGATIVE (NEGATIVE); METHADONE URINE SCREEN Neg (NEGATIVE); OPIATES URINE SCREEN NEGATIVE (NEGATIVE); PHENCYCLIDINE URINE SCREEN NEGATIVE (NEGATIVE)
[2023-12-25 18:30] LABS: AMMONIA 34 uMol/L (<32)
[2023-12-26] VITALS (9 sets, daily range): BP systolic 96–139; BP diastolic 46–75; PULSE 69–78; RESP 16–20; TEMP 96.3–99.1
[2023-12-26 06:52] LABS: BASOPHILS % 0.6 % (0.0-2.0); DIFFERENTIAL COMMENT 0; EOSINOPHILS % 0.3 % (0.0-5.0); MEAN CORPUSCULAR HEMOGLOBIN 26.5 pg (28.0-32.0); MEAN CORPUSCULAR HGB CONC 33.6 g/dL (31.0-37.0); MEAN CORPUSCULAR VOLUME 78.9 fL (80.0-94.0); MEAN PLATELET VOLUME 7.5 fl (7.4-10.4); MONOCYTES % 8.6 % (2.0-8.0); NEUTROPHILS % 76.5 % (40.0-76.0); PLATELET 243 x1000/uL (130-400); RED BLOOD CELL COUNT 2.64 mill/uL (4.7-6.1); RED CELL DISTRIBUTION WIDTH 19.2 % (11.6-14.6); WHITE BLOOD COUNT 8.9 x1000/uL (4.5-11.0)
[2023-12-26 08:13] LABS: ALPHA FETOPROTEIN TUMOR MARKER 1.9 ng/mL (0.0-8.4); CARCINOEMBRYONIC AG - SEND OUT 5.2 ng/mL (0.0-4.7)
[2023-12-26 08:20] LABS: CALCIUM 7.3 mg/dL (8.7-10.4); POTASSIUM 4.4 mEq/L (3.5-5.1)
[2023-12-26 08:27] LABS: CREATININE 6.8 mg/dL (0.6-1.3)
[2023-12-26 08:45] LABS: HEMATOCRIT. 20.8 % (42.0-52.0)
[2023-12-26 11:24] LABS: CREATINE KINASE 55 IU/L (46-171)
[2023-12-27] VITALS (9 sets, daily range): BP systolic 102–128; BP diastolic 64–82; PULSE 69–78; RESP 17–20; TEMP 97.5–98.7
[2023-12-27 07:06] LABS: BASOPHILS % 0.5 % (0.0-2.0); EOSINOPHILS % 0.4 % (0.0-5.0); HEMATOCRIT. 24.3 % (42.0-52.0); HEMOGLOBIN. 8.1 g/dL (14.0-18.0); LYMPHOCYTES % 11.3 % (20.0-50.0); MEAN CORPUSCULAR HEMOGLOBIN 26.8 pg (28.0-32.0); MEAN CORPUSCULAR HGB CONC 33.4 g/dL (31.0-37.0); MEAN CORPUSCULAR VOLUME 80.3 fL (80.0-94.0); MEAN PLATELET VOLUME 7.5 fl (7.4-10.4); MONOCYTES % 9.1 % (2.0-8.0); NEUTROPHILS % 78.7 % (40.0-76.0); PLATELET 199 x1000/uL (130-400); RED BLOOD CELL COUNT 3.03 mill/uL (4.7-6.1); RED CELL DISTRIBUTION WIDTH 19.2 % (11.6-14.6); WHITE BLOOD COUNT 8.5 x1000/uL (4.5-11.0)
[2023-12-27 07:11] LABS: CALCIUM 7.1 mg/dL (8.7-10.4); POTASSIUM 4.2 mEq/L (3.5-5.1)
[2023-12-27 08:20] LABS: CREATININE 7.3 mg/dL (0.6-1.3)
[2023-12-27 13:29] LABS: HEPATITIS A AB IGM NEGATIVE (Negative); HEPATITIS B CORE AB IGM NEGATIVE (Negative); HEPATITIS B SURFACE ANTIGEN NEGATIVE (Negative); HEPATITIS C AB NON REACTIVE (Neg) (Negative)
[2023-12-27] MEDS: EPOETIN ALFA 4000UNITS/ML VIAL SUBCUT SCH (21:53)
[2023-12-28] VITALS: BP 124/66; PULSE 68; RESP 18; TEMP 97.9
[2023-12-28 04:00] VITALS: BP 127/65; PULSE 69; RESP 18; TEMP 97.4
[2023-12-28 07:04] LABS: BASOPHILS % 0.4 % (0.0-2.0); EOSINOPHILS % 0.9 % (0.0-5.0); HEMATOCRIT. 26.1 % (42.0-52.0); HEMOGLOBIN. 8.9 g/dL (14.0-18.0); LYMPHOCYTES % 11.3 % (20.0-50.0); MEAN CORPUSCULAR HEMOGLOBIN 27.3 pg (28.0-32.0); MEAN CORPUSCULAR HGB CONC 34.1 g/dL (31.0-37.0); MEAN CORPUSCULAR VOLUME 80.2 fL (80.0-94.0); MEAN PLATELET VOLUME 7.5 fl (7.4-10.4); MONOCYTES % 8.4 % (2.0-8.0); PLATELET 184 x1000/uL (130-400); RED BLOOD CELL COUNT 3.25 mill/uL (4.7-6.1); RED CELL DISTRIBUTION WIDTH 18.7 % (11.6-14.6); WHITE BLOOD COUNT 9.2 x1000/uL (4.5-11.0)
[2023-12-28 07:10] LABS: CALCIUM 7.4 mg/dL (8.7-10.4)
[2023-12-28 07:38] LABS: CREATININE 5.6 mg/dL (0.6-1.3)
[2023-12-28] MEDS: CALCIUM CHLORIDE 1,000 MG in DEXT 5% WATER 100 ML IV ONE (07:59)
[2023-12-28] MEDS: LIDOCAINE HCL 1% 10 MG/ML 10ML VIAL ONE (07:59)
[2023-12-28] MEDS: SODIUM BICARBONATE 4% (2.4MEQ) 5ML VIAL IV ONE (07:59)
[2023-12-28 08:00] VITALS: BP 108/58; PULSE 67; RESP 16; TEMP 96.4
[2023-12-28 12:00] VITALS: BP 128/76; PULSE 67; RESP 16; TEMP 96.8
== END 2023-12-28 16:30 | disposition left against medical advice (07) | DRG 280 ==
LOC: ER 22:01 → 8WST 12-24 03:23
PROVIDERS: ADMIT Family Medicine Adult Medicine; ATTEND Family Medicine Adult Medicine
PROC: 0W9G3ZZ Drainage of Peritoneal Cavity, Percutaneous Approach (ICD-10-PCS; principal; 2023-12-25)
PROC: 30233N1 Transfusion of Nonautologous Red Blood Cells into Peripheral Vein, Percutaneous Approach (ICD-10-PCS; 2023-12-26)
PROC: 5A1D70Z Performance of Urinary Filtration, Intermittent, Less than 6 Hours Per Day (ICD-10-PCS; 2023-12-27)
PROC: 05HM33Z Insertion of Infusion Device into Right Internal Jugular Vein, Percutaneous Approach (ICD-10-PCS; 2023-12-27)
PROC: B543ZZA Ultrasonography of Right Jugular Veins, Guidance (ICD-10-PCS; 2023-12-27)
DX: K70.31 Alcoholic cirrhosis of liver with ascites (principal); N17.0 Acute kidney failure with tubular necrosis; K76.7 Hepatorenal syndrome; E87.20 Acidosis, unspecified; E11.649 Type 2 diabetes mellitus with hypoglycemia without coma; E87.5 Hyperkalemia; D64.9 Anemia, unspecified; I10 Essential (primary) hypertension; F10.10 Alcohol abuse, uncomplicated; E78.00 Pure hypercholesterolemia, unspecified; Z53.29 Procedure and treatment not carried out because of patient's decision for other reasons; K44.9 Diaphragmatic hernia without obstruction or gangrene; F17.210 Nicotine dependence, cigarettes, uncomplicated; E86.9 Volume depletion, unspecified; R19.7 Diarrhea, unspecified; Y90.9 Presence of alcohol in blood, level not specified
CPT/HCPCS: 36415; 36556; 49083; 71045; 74176; 76700; 76937; 80048; 80053; 80076; 80305; 80320; 81003; 82105; 82140; 82270; 82378; 82550; 82607; 82728; 82746; 82962; 83036; 83540; 83550; 83735; 84100; 84443; 84484; 85025; 85027; 85044; 86301; 86705; 86706; 86709; 86850; 86900; 86920; 87045; 87340; 87449; 87493; 89055; 90935; 93970; 99285; C1752; C9113; J0696; J0885; J1815; J2405; J3490; J7060; J7070; P9016; G0480